=== PATIENT | male | born 2000 | race Caucasian/White ===

== ENCOUNTER → 2019-11-15 | Outpatient (CLI) | payer SELFPAY | LOC: COL.RAD 07:26 | DX: K92.1 Melena (principal) ==

== ENCOUNTER 2019-11-17 08:03 | Day surgery (SDC) | payer SELFPAY ==
[~2019-11-17] VITALS: Ht 177.8 cm; Wt 73.9 kg
[2019-11-17 09:01] VITALS: BP 129/87; PULSE 81; TEMP 97.5
[2019-11-17 10:50] VITALS: BP 121/70; PULSE 70; TEMP 98.8
--- NOTE | 2019-11-17 10:50 | NUR ---
Pt to [facility] via cart from [place]. Pt drowsy, but wake. Ambulates to recliner with stand by assist x2. Sister in law in room. Water given per pt request. Warm blankets provided. Will continue to monitor. Call light within reach.
[2019-11-17 11:05] VITALS: BP 125/61; PULSE 80
--- NOTE | 2019-11-17 11:05 | NUR ---
Pt continues to rest. Denies needs. Call light within reach.
[2019-11-17 11:20] VITALS: BP 118/76; PULSE 61
--- NOTE | 2019-11-17 11:20 | NUR ---
into consult with pt. [place]in and more water given per pt request. Will continue to monitor. Call light within reach.
--- NOTE | 2019-11-17 11:30 | NUR ---
Discharge instructions reviewed. Pt voices understanding. IV site discontinued with all parts intact. Pt up to dress. Call light within reach.
--- NOTE | 2019-11-17 11:40 | NUR ---
Pt escorted to private car via wheel chair. Pt accompanied home by his sister in law.
== END 2019-11-17 11:40 | disposition home or self-care (01) ==
LOC: SDCO 08:03
DX: K21.0 Gastro-esophageal reflux disease with esophagitis (principal); K25.7 Chronic gastric ulcer without hemorrhage or perforation; K63.89 Other specified diseases of intestine; K92.1 Melena; R19.7 Diarrhea, unspecified; D64.4 Congenital dyserythropoietic anemia; Z88.1 Allergy status to other antibiotic agents
CPT/HCPCS: J2250; J2405; J3010; J7030